=== PATIENT | female | born 1955 | race Caucasian/White ===

== ENCOUNTER 2024-05-29 09:42 | Emergency (ER) | payer MEDICARE ==
--- NOTE | 2024-05-29 10:29 | XRAY Report ---
PROCEDURE: Chest 2V INDICATIONS: cough TECHNIQUE: 2 views of the chest were acquired. COMPARISON: None. FINDINGS: Surgical changes and devices: None. Lungs and pleura: No pleural effusions or pneumothorax. Lungs are clear. Mediastinum: Mediastinal contours appear normal. Heart size is normal. Bones and chest wall: No suspicious bony lesions. Overlying soft tissues appear unremarkable. IMPRESSION: No acute cardiopulmonary process. Reviewed by: Jevon John MD on 05/29/2024 10:28 AM PDT Approved by: Jevon John MD on 05/29/2024 10:28 AM PDT Station ID: [id number]
[2024-05-29 11:04] LABS: B. PARAPERTUSSIS- RESP PCR PAN NOT DETECTED; B. PERTUSSIS- RESP PCR PANEL NOT DETECTED; C. PNEUMONIAE- RESP PCR PANEL NOT DETECTED; CORONAVIRUS 229E-RESP PCR NOT DETECTED; CORONAVIRUS HKU1-RESP PCR NOT DETECTED; CORONAVIRUS NL63-RESP PCR NOT DETECTED; CORONAVIRUS OC43-RESP PCR NOT DETECTED; HUMAN METAPNEUMOVIRUS NOT DETECTED; INFLUENZA A H1 2009- RESP PCR DETECTED; INFLUENZA B - RESP PCR PANEL NOT DETECTED; M. PNEUMONIAE- RESP PCR PANEL NOT DETECTED; PARAINFLUENZA VIRUS 1 NOT DETECTED; PARAINFLUENZA VIRUS 2 NOT DETECTED; PARAINFLUENZA VIRUS 3 NOT DETECTED; PARAINFLUENZA VIRUS 4 NOT DETECTED; RHINOVIRUS/ENTEROVIRUS NOT DETECTED; RSV- RESP PCR PANEL NOT DETECTED; SARS-CoV-2 -RESP PCR PANEL NOT DETECTED
--- NOTE | 2024-05-29 11:11 | ED Physician Documentation ---
PD HPI DYSPNEA - Stated complaint Stated Complaint: SOA,COUGH - Chief complaint Chief Complaint: Resp - Additional information Additional information: 68-year-old female with history of hypertension, migraines, osteoarthritis, chronic bronchitis presents emergency department for generalized malaise, cough, congestion. Patient just got back from a cruise to [place] symptoms started on Tuesday and she feels like she is not having any improvement of symptoms since then. She is unsure if she has had any fevers or chills. Mild nausea no vomiting no diarrhea no constipation. PD PAST MEDICAL HISTORY - Past Medical History Past Medical History: Yes Cardiovascular: Hypertension Respiratory: None Neuro: Migraines Endocrine/Autoimmune: Other GI: GERD ROSE GROWER: Breast cancer : None HEENT: None Psych: None Musculoskeletal: Osteoarthritis Derm: None - Past Surgical History Past Surgical History: Yes Ortho: Arthroscopic surgery, Spine surgery /ROSE GROWER: Other - Present Medications Home Medications: Ambulatory Orders Medication Instructions Recorded Confirmed Oseltamivir [Tamiflu] 75 mg PO BID 5 Days #9 cap 05/29/24 predniSONE [Deltasone] 40 mg PO DAILY 4 Days #8 tablet 05/29/24 - Allergies Allergies/Adverse Reactions: Allergies Allergy/AdvReac Type Severity Reaction Status Date / Time acetaminophen [From Vicodin] Allergy Unknown Verified 05/29/24 09:59 codeine Allergy Unknown Verified 05/29/24 09:59 hydrocodone [From Vicodin] Allergy Unknown Verified 05/29/24 09:59 - Social History Does the pt smoke?: Yes Smoking Status: Current every day smoker Does the pt drink ETOH?: Yes Does the pt have substance abuse?: No - Immunizations Immunizations are current?: Yes - POLST Patient has POLST: No PD ED PE NORMAL - Vitals Vital signs reviewed: Yes - General General: Alert and oriented X 3, No acute distress, Well developed/nourished - HEENT HEENT: Atraumatic - Cardiac Cardiac: RRR - Respiratory Respiratory: Other (subtle bilateral wheezing) - Abdomen Abdomen: Normal bowel sounds, Soft, Non tender - Back Back: No CVA TTP - Derm Derm: Normal color, Warm and dry, No rash - Extremities Extremities: No edema, No calf tenderness / cord Results - Vitals Vitals: Vital Signs - 24 hr 05/29/24 05/29/24 05/29/24 09:59 11:14 11:30 Temperature 37.5 C 37.4 C Heart Rate 112 H 109 H 110 H Respiratory 24 20 22 Rate Blood Pressure 135/108 H 143/68 H O2 Saturation 94 96 Oxygen O2 Source Room air - Labs Labs: Laboratory Tests 05/29/24 10:10 Nasal Adenovirus (PCR) NOT DETECTED Nasal B. parapertussis DNA (PCR) NOT DETECTED Nasal Coronavir 229E PCR NOT DETECTED Nasal Coronavir HKU1 PCR NOT DETECTED Nasal Coronavir NL63 PCR NOT DETECTED Nasal Coronavir OC43 PCR NOT DETECTED Nasal Enterovir/Rhinovir PCR NOT DETECTED Nasal Influ A H1 2009 PCR DETECTED A Nasal Influenza B PCR NOT DETECTED Nasal Parainfluen 1 PCR NOT DETECTED Nasal Parainfluen 2 PCR NOT DETECTED Nasal Parainfluen 3 PCR NOT DETECTED Nasal Parainfluen 4 PCR NOT DETECTED Nasal RSV (PCR) NOT DETECTED Nasal B.pertussis DNA PCR NOT DETECTED Nasal C.pneumoniae (PCR) NOT DETECTED Sim Human Metapneumo PCR NOT DETECTED Nasal M.pneumoniae (PCR) NOT DETECTED Nasal SARS-CoV-2 (PCR) NOT DETECTED - Rads (name of study) chest Xray Relevant Findings:: Final report received, EMP independent interpretation of test, Other (No acute cardiopulmonary abnormalities) PD Medical Decision Making - ED course ED course: 68-year-old female presents emergency department for fevers, chills, and generalized malaise. Respiratory swab was complete and she did test positive for H1 and 1. She did receive 1 treatment of a DuoNeb here in the emergency department for her wheezing cough and what she describes as shortness of breath. She was also given some Tylenol for generalized bodyaches as well as some Mucinex to help with the secretions. She was started on Tamiflu and a prescription of Tamiflu was sent to her preferred pharmacy as well as prednisone. I do believe that patient has undiagnosed COPD and is a chronic smoker and has continued to smoke through this illness and so I think that a steroid burst to be helpful for the patient's symptoms that she is experiencing. Patient does report that she is feeling significantly better after receiving these medications she said that she lives in [place] and has a primary care provider appointment scheduled coming up and she was informed to let them know about today's ER visit. Chest x-ray does not show any pneumonia or any other acute cardiopulmonary abnormalities. Patient is safe for discharge at this time return precautions given all questions answered. Departure - Departure Disposition: 01 Home, Self Care Clinical Impression: Influenza A (H1N1) Instructions: ED Flu, Medication: Tamiflu (Oseltamivir) Prescriptions: predniSONE [Deltasone] 40 mg PO DAILY 4 Days #8 tablet Oseltamivir [Tamiflu] 75 mg PO BID 5 Days #9 cap Comments: Thank you for trusting us with your care. You have been diagnosed with influenza, H1 N1. I have sent a prescription of prednisone to [facility] pharmacy because I do believe that you could be having an exacerbation of undiagnosed COPD as well as Tamiflu. He took the first dose of Tamiflu here in the emergency department you will take the second dose this evening and then you will take it thereafter twice a day for the next 4 days. You took your first dose of steroids here in the emergency department and you will take it thereafter the next 4 mornings with breakfast. Wear a mask while traveling to prevent from spreading your flu and follow-up with your primary care provider upon return home. Please present to the nearest emergency department if you are having any worsening symptoms. Forms: PCP List Discharge Date/Time: 05/29/24 11:45
[2024-05-29 11:19] VITALS: BP 143/68; O2SAT 96
[2024-05-29] MEDS: guaiFENesin 600 MG TABLET PO STA (11:27)
[2024-05-29] MEDS: OSELTAMIVIR 75 MG CAPSULE PO STA (11:27)
[2024-05-29] MEDS: IPRATROPIUM/ALBUTEROL 3 ML NEB INH STA (11:27)
[2024-05-29] MEDS: ACETAMINOPHEN 500 MG TABLET PO STA (11:42)
[2024-05-29] MEDS: predniSONE 20 MG TABLET PO STA (11:54)
== END 2024-05-29 11:45 | disposition home or self-care (01) ==
LOC: ED 09:42
DX: J10.1 Influenza due to other identified influenza virus with other respiratory manifestations (principal); I10 Essential (primary) hypertension; Z85.3 Personal history of malignant neoplasm of breast; F17.200 Nicotine dependence, unspecified, uncomplicated
CPT/HCPCS: 71046; 87633; 94640; 99283; A9270; J7512